=== PATIENT | male | born 1990 | race African-American/Black ===

== ENCOUNTER 2017-05-13 22:05 | Emergency (ER) | payer MEDICAID ==
[~2017-05-13] VITALS: Ht 172.7 cm; Wt 67.6 kg
[~2017-05-13 22:05] MED LIST: CEPH-37 PO; DIVA500T59 PO; LORATIDINE PO; PHEN100C70 PO; QUET400T3 PO; TRAZADONE PO
[2017-05-13 22:14] VITALS: BP 137/78
== END 2017-05-14 00:23 | disposition left against medical advice (07) ==
LOC: EDUNIT# 22:05 → ER 22:05 → EDBD 22:05 → ER 05-14 00:23
DX: M79.662 Pain in left lower leg (principal); M79.661 Pain in right lower leg; Z53.21 Procedure and treatment not carried out due to patient leaving prior to being seen by health care provider